=== PATIENT | male | born 1970 | race Caucasian/White ===

== ENCOUNTER → 2016-07-02 | Outpatient (CLI) | payer BC ==
[~2016-07-02] MED LIST: ASPIRIN LO-DOSE81 MG PO; BRILINTA90 MG PO; HYDRODIURIL25 MG PO; LIPITOR80 MG PO; TOPROL XL 5050 MG PO; ZOCOR20 MG PO
== END | disposition disaster alternative care site (69) ==
LOC: GRAD 07:52
DX: R51 Headache (principal)

== ENCOUNTER → 2016-07-05 | Outpatient (CLI) | payer BC | END | disposition disaster alternative care site (69) | LOC: GRAD 14:20 | DX: R51 Headache (principal); J32.4 Chronic pansinusitis ==

== ENCOUNTER 2016-07-08 10:47 | Emergency (ER) | payer BC ==
--- NOTE | ~2016-07-08 | ER ---
PATIENT'S NAME: MEKHI [facility] AGE: 45 Y [address] ROOM: [place] [address] LOCATION: ED ADMIT DATE: 07/08/2016 ER/Outpatient Report DISCHARGE DATE: 07/08/2016 FAMILY PHYSICIAN: Paul Sanchez MD ATTENDING PHYSICIAN: Duy Elkins Time of Patient's Arrival: 1047 hours. Time of Patient's Evaluation: 1055 hours. CHIEF COMPLAINT: Left flank pain. HISTORY OF PRESENT ILLNESS: This is a 45-year-old male who presents to the ER. He states he has been having some left flank pain off and on since last week. He states his pain worsened yesterday and today. He states it is in his left leg that radiates around to the front of his abdomen and it is sharp and stabbing in nature. It does make him feel nauseated. He has had no vomiting. No diarrhea. No fever. He states he has noticed some hematuria with this. He has had kidney stones in the past and it feels similar to those. He has had to have lithotripsy done to his kidney stones in the past. ALLERGIES: NO KNOWN ALLERGIES. MEDICATIONS: Please see medication list nurse's notes. PAST MEDICAL HISTORY: Kidney stones, IBS, coronary artery disease with recent cardiac stent. SOCIAL HISTORY: Denies smoking, drug, or alcohol use. REVIEW OF SYSTEMS: A 10-point review of systems was completed and was negative with the exception of those discussed in the HPI. PHYSICAL EXAMINATION: VITAL SIGNS: Height 6 feet 3 inches stated, weight 110.6 kg taken, blood pressure is 145/85, pulse 80, respirations 18, temperature 98.2 degrees tympanically, saturations 96% on room air. Wayne Coma Score is 15. GENERAL: Alert, calm, well-developed male, in mild to moderate distress. HEENT. Head: Normocephalic. Eyes: Pupils are reactive to light. Does display moist mucous membranes. PATIENT'S NAME: MEKHI [facility]IK [facility] AGE: 45 Y [address] ROOM: [place] [address] LOCATION: ED ADMIT DATE: 07/08/2016 ER/Outpatient Report DISCHARGE DATE: 07/08/2016 FAMILY PHYSICIAN: Paul Sanchez MD ATTENDING PHYSICIAN: Duy Elkins LUNGS: Clear to auscultation bilaterally. No wheeze or crackles. Normal respiratory effort. HEART: Regular rate and rhythm. No lifts, thrills, or murmurs. ABDOMEN: Soft, it is nontender. He does have some left-sided CVA tenderness with palpation. EXTREMITIES: No clubbing, cyanosis, or edema. Full range of motion of all limbs. LABORATORY DATA: CBC: White count is 7.9, hemoglobin is 15.3, platelets 263, ANC is 5.3. CMS was reviewed. Urinalysis has blood with no infection, leukocytes 25, and nitrites were negative. CT scan was done per stone protocol and does show a 3.5 mm obstructing mid left ureteral renal calculi causing mild are unsure moderate hydronephrosis. IMPRESSION: 3.5 mm obstructing mid left ureteral renal calculi. ASSESSMENT AND PLAN: I did start an IV here in the emergency room. We did give him a liter of IV fluids along with 2 mg of morphine and 30 mg of Toradol. The patient states that this improved his pain greatly. He states he would like to try to go home with this, so I will send him home with a prescription for Percocet, Zofran, and Flomax to use as directed. He needs to continue to push fluids. He may alternate his pain medication as needed with ibuprofen. He should strain his urine. I would like him to follow up with Urology for followup in the next 1-2 days. The patient understands and agrees with care. NASH DE LA PAZ PA-C FOR MD ЕКАТЕРИНА HERNANDEZ/hans /[id number] d: 07/08/16 1611 t: 08/01/16 0851, OUTPATIENT REPORT
[2016-07-08 11:08] LABS: BASOPHIL # 0.1 K/uL (0.0-0.2); BASOPHIL % 1.1 %; EOSINOPHIL # 0.3 K/uL (0.0-0.5); EOSINOPHIL % 3.8 %; HEMATOCRIT 43.8 % (37.0-53.0); HEMOGLOBIN 15.3 g/dL (12.0-17.0); IMMATURE GRANULOCYTE % 0.1 %; LYMPHOCYTE # 1.8 K/uL (0.8-4.0); LYMPHOCYTE % 22.7 %; MCH 32.4 pg (27.0-34.0); MCHC 34.9 gm/dL (32.0-36.5); MCV 92.8 fl (83.0-98.0); MONOCYTE # 0.5 K/uL (0.0-1.0); MONOCYTE % 5.8 %; MPV 10.1 fl (9.4-12.4); NEUTROPHIL # (ANC) 5.3 K/uL (1.4-9.0); NEUTROPHIL % 66.5 %; NRBC % 0 /100WBC (0-0.00); PLATELET COUNT 263 K/uL (150-450); RBC 4.72 M/uL (4.00-6.00); RDW-CV 13.6 % (11.9-14.6); WBC 7.9 K/uL (4.0-11.0)
[2016-07-08 11:23] LABS: ANION GAP 13.6 (10.0-19.0); CALCIUM 8.7 mg/dL (8.5-10.5); CREATININE 1.6 mg/dL (0.6-1.3); POTASSIUM 3.6 mMol/L (3.7-5.1); TOTAL BILIRUBIN 0.9 mg/dL (0.0-1.5); TOTAL PROTEIN 7.8 g/dL (6.0-8.4)
[2016-07-08 11:24] LABS: BILIRUBIN URINE NEGATIVE (NEGATIVE); BLOOD URINE 250 /UL (NEGATIVE); COLOR URINE RED (YELLOW); GLUCOSE URINE NEGATIVE (NEGATIVE); KETONE URINE NEGATIVE (NEGATIVE); LEUKOCYTES URINE 25 /UL (NEGATIVE); NITRITE URINE NEGATIVE (NEGATIVE); PROTEIN URINE 100 mg/dL (NEGATIVE); TURBIDITY URINE 3+ (CLEAR); UROBILINOGEN URINE 1 mg/dL (NORMAL)
[2016-07-08 11:32] LABS: EPITHELIAL URINE RARE #/HPF (NEGATIVE); RBC URINE 50-100 #/HPF (NEGATIVE); WBC URINE RARE #/HPF (NEGATIVE)
[2016-07-08 11:33] LABS: BACTERIA URINE RARE (NEGATIVE)
== END 2016-07-08 11:54 | disposition disaster alternative care site (69) ==
LOC: GMED 10:47
PROVIDERS: Emergency Medicine
DX: N13.2 Hydronephrosis with renal and ureteral calculous obstruction (principal); K58.9 Irritable bowel syndrome, unspecified; I25.10 Atherosclerotic heart disease of native coronary artery without angina pectoris; Z98.890 Other specified postprocedural states; Z79.82 Long term (current) use of aspirin; Z79.899 Other long term (current) drug therapy
CPT/HCPCS: J1885; J2270; J7030

== ENCOUNTER → 2016-07-27 | Outpatient (CLI) | payer BC | END | disposition disaster alternative care site (69) | LOC: GRAD 16:51 | DX: N20.0 Calculus of kidney (principal); R10.9 Unspecified abdominal pain; N20.1 Calculus of ureter ==

== ENCOUNTER → 2016-07-27 | Outpatient (CLI) | payer BC | END | disposition disaster alternative care site (69) | LOC: GRAD 07:55 | DX: N21.1 Calculus in urethra (principal); N20.0 Calculus of kidney; I87.8 Other specified disorders of veins ==

== ENCOUNTER → 2016-08-20 | Outpatient (CLI) | payer BC | END | disposition disaster alternative care site (69) | LOC: LNHI 12:59 | DX: I25.10 Atherosclerotic heart disease of native coronary artery without angina pectoris (principal); E78.5 Hyperlipidemia, unspecified; I10 Essential (primary) hypertension ==